=== PATIENT | male | born 1970 | race Caucasian/White ===

== ENCOUNTER 2018-05-30 11:50 | Observation (INO) ==
[2018-05-30 12:32] LABS: Hematocrit 50.6 % (37.5-50.1); Hemoglobin 16.6 g/dL (12.9-16.9); Immature Granulocytes % 0.8 % (0-4); Lymphocytes % 24.5 %; Mean Corpuscular HGB Conc 32.8 g/dL (31.6-35.5); Mean Corpuscular Hemoglobin 29.4 pg (28.0-33.3); Mean Corpuscular Volume 89.7 fL (83.0-100.0); Mean Platelet Volume 9.2 fL (9.4-12.4); Monocytes % 3.3 %; Platelet Count 142 K/mcL (140-400); Red Blood Count 5.64 M/mcL (4.19-5.50); Segmented Neutrophils % 70.5 %
[2018-05-30 12:33] LABS: Basophils % 0.4 %; Eosinophils % 0.5 %; Lymphocytes # 2.1 K/mcL (0.6-4.6); Monocytes # 0.3 K/mcL (0.0-1.3); Neutrophils # 5.9 K/mcL (1.6-8.9)
[2018-05-30] MEDS ORDERED: Ipratropium/Albuterol Neb 3 ML IH ONE (12:51)
[2018-05-30] MEDS ORDERED: predniSONE 20 MG TABLET PO ONE (12:51)
[2018-05-30 12:54] LABS: BUN/Creatinine Ratio 19 (6-26); Blood Urea Nitrogen 23 mg/dL (6-20); Calcium 9.3 mg/dL (8.6-10.3); Carbon Dioxide 25 mEq/L (23-29); Chloride 103 mEq/L (98-107); Glucose 185 mg/dL (70-105); Osmolality,Calculated 290 (280-300); Potassium 3.8 mEq/L (3.5-5.1); Sodium 136 mEq/L (136-145); eGFR For Non-African Americans > 60 (> 60)
[2018-05-30 13:04] LABS: Troponin I 0.06 ng/mL (< 0.04)
--- NOTE | 2018-05-30 14:41 | Emergency Department Note ---
Disposition Clinical Impression: Elevated troponin Asthma exacerbation Qualifiers: Asthma severity: mild Asthma persistence: persistent Qualified Code(s): J45.31 - Mild persistent asthma with (acute) exacerbation Disposition: Admitted As Inpatient Condition: Fair Time of Disposition: 14:41 General Adult HPI - General Chief complaint: ED Shortness of Breath/Dyspnea Stated complaint: Possible pneumonia Time Seen by Provider: 05/30/18 12:01 Source: patient Mode of arrival: ambulatory Limitations: no limitations Nursing Notes Reviewed: Yes Vital Signs Reviewed: Yes - History of Present Illness HPI Narrative: 48-year-old male with significant past medical history of asthma presenting to the emergency department chief complaint of left-sided "rumbling" in his lungs. According to the patient approximately 1 week ago he was seen by urgent care and diagnosed with pneumonia. At that time he was having shortness of breath, wheezing and fever. He was given a Z-Melecio and steroids. He completed these approximately 4-5 days ago but he continues to have shortness of breath. He states he can hear his left long rumbling. He denies any chest pain, abdominal pain, nausea or vomiting. Has not had any fever since he completed antibiotics. Patient denies any cardiac history. His only other medication is a rescue inhaler as needed. Pain Scale: 0 - Related Data Allergies Allergy/AdvReac Type Severity Reaction Status Date / Time Penicillins Allergy "don't Verified 05/30/18 11:57 know, I was a baby." All systems ED: reviewed and negative except as stated. Constitutional: Denies: fever Eyes: Reports: as per HPI ENT ED: Reports: as per HPI Cardiovascular: Denies: chest pain Respiratory: Reports: dyspnea, wheezes Gastrointestinal: Denies: abdominal pain Genitourinary: Reports: as per HPI Musculoskeletal: Reports: as per HPI Integumentary: Reports: as per HPI Neurological: Reports: as per HPI Psychiatric: Reports: as per HPI Endocrine: Reports: as per HPI Hematological/Lymphatic: Reports: as per HPI Allergic/Immunologic: Reports: as per HPI Past Medical History - Past Medical History Attestation: Yes The following information was validated with the patient. Medical history: Reports: asthma Psychiatric history: Reports: anxiety - Social History Smoking Status: Current every day smoker Smokeless Tobacco Status: No Alcohol use: Reports: none Drug use: Reports: none Physical Exam - General Limitations: no limitations General appearance: alert, in no apparent distress - Head Head exam: atraumatic, normocephalic, normal inspection - Eye Eye exam: Absent: scleral icterus - ENT ENT exam: mucous membranes moist - Neck Neck exam: Present: full ROM - Chest Chest inspection: Present: symmetric chest wall rise - Respiratory Respiratory exam: Present: wheezes (Expiratory wheezing heard throughout). Absent: respiratory distress, stridor, accessory muscle use - Cardiovascular Cardiovascular exam: Present: normal rhythm, tachycardia, normal heart sounds - Abdominal Exam Abdominal exam: Present: soft, Non-Tender. Absent: distention, guarding, rebound - Extremities Exam Extremities exam: Present: full ROM - Neurological Exam Neurological exam: Present: alert, oriented X3 - Psychiatric Psychiatric exam: Present: normal affect, normal mood - Skin Skin exam: Present: warm Course Course Narrative: 48-year-old male presenting for shortness of breath and "rumbling" in his left lung. In the room patient is alert and oriented 3. Minimally tachycardic in the low 100s but otherwise hemodynamically stable. Patient does have expiratory wheezing on exam but otherwise exam is within normal limits. Due to patient's shortness of breath obtain basic laboratory analysis along with an EKG and chest x-ray. Disposition pending. Patient agrees with this plan. We will provide the patient with DuoNebs and steroids as well. - Reevaluation(s) Reevaluation #1: Patient's laboratory analysis concerning for an elevated troponin at 0.06. Patient has no previous EKG for troponin to compare to. His EKG also has some T-wave inversions noted. Due to patient's shortness of breath, abnormal EKG and elevated troponin will plan to admit him for further evaluation. Patient continues to deny any chest pain at this time. 3 and hemodynamically stable. Patient agrees to admission. I spoke with the hospitalist on-call who agrees to accept the patient at this time. Vital Signs Temperature 98.6 F 05/30/18 11:54 Pulse Rate 103 05/30/18 11:54 Respiratory Rate 18 05/30/18 11:54 Blood Pressure 171/107 05/30/18 11:54 O2 Sat by Pulse Oximetry 98 05/30/18 11:54 Temperature 98.1 F 05/30/18 14:46 Pulse Rate 95 05/30/18 14:46 Respiratory Rate 18 05/30/18 14:46 Blood Pressure 134/87 05/30/18 14:46 O2 Sat by Pulse Oximetry 96 05/30/18 14:46 Oxygen Delivery Oxygen Delivery Room Air Medical Decision Making - Lab Data Result diagrams: 05/30/18 12:19 05/30/18 12:19 Lab Results 05/30/18 05/30/18 05/30/18 Range/Units 12:19 12:19 12:19 WBC 8.4 (4.3-11.1) K/mcL RBC 5.64 H (4.19-5.50) M/mcL Hgb 16.6 (12.9-16.9) g/dL Hct 50.6 H (37.5-50.1) % MCV 89.7 (83.0-100.0) fL MCH 29.4 (28.0-33.3) pg MCHC 32.8 (31.6-35.5) g/dL RDW 16.0 H (11.5-14.5) % Plt Count 142 (140-400) K/mcL MPV 9.2 L (9.4-12.4) fL Immature Gran % 0.8 (0-4) % Seg Neutrophils % 70.5 % Lymphocytes % 24.5 % Monocytes % 3.3 % Eosinophils % 0.5 % Basophils % 0.4 % Neutrophils # 5.9 (1.6-8.9) K/mcL Lymphocytes # 2.1 (0.6-4.6) K/mcL Monocytes # 0.3 (0.0-1.3) K/mcL Eosinophils # 0.0 (0.0-0.6) K/mcL Basophils # 0.0 (0.0-0.2) K/mcL Sodium 136 (136-145) mEq/L Potassium 3.8 (3.5-5.1) mEq/L Chloride 103 (98-107) mEq/L Carbon Dioxide 25 (23-29) mEq/L BUN 23 H (6-20) mg/dL Creatinine 1.18 (0.70-1.30) mg/dL Est GFR ( Amer) > 60 (> 60) Est GFR (Non-Af Amer) > 60 (> 60) BUN/Creatinine Ratio 19 (6-26) Glucose 185 H (70-105) mg/dL Calculated Osmolality 290 (280-300) Calcium 9.3 (8.6-10.3) mg/dL Troponin I 0.06 H* (< 0.04) ng/mL B-Natriuretic Peptide 20 (Less than 100) pg/mL - EKG Data EKG #1 EKG attestation: Yes I reviewed and interpreted this EKG. EKG results narrative: Sinus tachycardia. 101 beats for minute. DC interval 144, QRS 92, QTC 418. No sign of acute ST segment elevation. T-wave inversion noted on V1, V2, V3, V4, V5. No old EKG to compare to. Attestation Statement - Attestation Attestation: I, Neptali Cohen, examined this patient and my medical decision-making was reviewed with the FLYING SHEAR OPERATOR/PA/Advanced Practice Nurse/Resident Physician. I agree with the documented findings, disposition and treatment plan as described except to the extent set forth below. 48-year-old male presents emergency Department with concerns of difficulty breathing. Patient states he has been on steroids in the past few days, took a course of azithromycin without significant improvement of his symptoms. Patient reports he did not take his full course of steroids secondary to feeling in creased anxiety and had difficulty sleeping. On physical exam the patient has wheezing the bilateral posterior lung bethea. He is given breathing treatment which helped his respiratory effort. Patient was not hypoxic. X-ray did not show obvious pneumonia. Had mild elevation of his troponin however he did not have chest pain emergency department EKG did not show evidence of acute STEMI. He will be admitted to the hospital for further care and evaluation.
[2018-05-30] MEDS ORDERED: Naloxone 0.4 MG/ML INJ IVP PRN (17:09)
--- NOTE | 2018-05-30 17:21 | Internal Med History&Physical ---
Date of Encounter: 05/30/18 Time of Encounter: 17:14 Internal Medicine - H&P: HPI Chief complaint: SOB, cough Admitted From: Home Plans for Post Hospital Care: Home History of present illness: Mr. Liz is a 48 year old obese male with PMHx of Asthma, Anxiety disorder, > 30 pack yr tobacco history presents to the ED c/o SOB and cough. Pt reports symptoms began 10 days ago. Pt reports subjective fevers, chills, weakness, body aches and a nonproductive cough. Pt also c/o some chest tightness and used his rescue inhaler however it did not help. Pt reports he went into an [facility] was told he had PNA (no CXR done) and was started on Medrol pack and Zpack. Pt reports he completed the Zpack but no the medrol pack as it made him gittery, made his heart race and gave him insomnia. Pt reports he came in today because he still felt weak, and heard some rattling in his chest. Pt denies chest pain, n/v or dizziness. On arrival in ED Vitals BP 171/107 --> 134/87, hr - 103 --> 95. RR - 18, Temp 98.6, SPO2 98% on RA. CXR neg for acute infiltrate. Pt given 1 duoneb and Prednisone 60 Past Med Surg Social Fam HX - Past Medical History Medical history: asthma Psychiatric history: anxiety - Social History Smoking Status: Current every day smoker Smokeless Tobacco Status: No Alcohol use: none Drug use: none - Family History Father Hx Family Endocrine Disorder: Yes (DM) Internal Medicine - H&P: Meds Allergy/AdvReac Type Severity Reaction Status Date / Time Penicillins Allergy "don't Verified 05/30/18 11:57 know, I was a baby." All Systems PM: A 10-system review of systems was performed and is negative for pertinent findings except as documented above in the HPI. Review of systems: A 14 point ROS was obtained from patient, pertinent positives and engatives as states in HPI, all other ROS were wnl except a chronic (>1yr hx) left foot pain and left eye hazzy vision) - Constitutional Vitals: Temp Pulse Resp BP Pulse Ox 98.1 F 95 18 134/87 96 05/30/18 14:46 05/30/18 14:46 05/30/18 14:46 05/30/18 14:46 05/30/18 14:46 General appearance: Present: A&O X 3, pleasant, no acute distress, obese Exam: as below - Head Head exam: Present: atraumatic, normocephalic - Eye Eye exam: Present: EOMI, PERRL Pupils: Present: PERRL - ENT ENT exam: Present: mucous membranes moist - Neck Neck exam general surgery: Present: full ROM, normal inspection - Respiratory Respiratory exam: Present: CTAB - Cardiovascular Cardiovascular exam: Present: RRR, +S1, +S2 - GI/Abdominal GI/Abdominal exam: Present: normal bowel sounds, soft - Extremities Exam Extremities exam: Present: full ROM, warm, radial pulses palpable and symmetrical Additional comments: No edema - Neurological Exam Neurological exam: Present: CN II-XII intact, oriented X3, no focal deficits - Skin Skin exam: Present: dry, intact Internal Med - H&P Results - Labs CBC & Chem 7: 05/30/18 12:19 05/30/18 12:19 Labs: Short CBC 05/30/18 Range/Units 12:19 WBC 8.4 (4.3-11.1) K/mcL Hgb 16.6 (12.9-16.9) g/dL Hct 50.6 H (37.5-50.1) % Plt Count 142 (140-400) K/mcL Neutrophils # 5.9 (1.6-8.9) K/mcL BMP 05/30/18 12:19 Sodium 136 Potassium 3.8 Chloride 103 Carbon Dioxide 25 BUN 23 H Creatinine 1.18 Glucose 185 H Calcium 9.3 Cardiac Enzymes 05/30/18 Range/Units 12:19 Troponin I 0.06 H* (< 0.04) ng/mL - EKG Data Rate: tachycardia - EKG Data EKG comments: 05/30/18 17:30 Sinus tachy at 101 bpm, T wave Inv in V2 - V6 (New in V3 - v6 compared to old one) - Impressions ITS Impressions Chest X-Ray 05/30/18 12:01 IMPRESSION: No acute cardiopulmonary process. D/ / John Petersen MD / John Petersen MD Interpreting Provider: John Petersen MD - Assessment and plan (1) Asthma exacerbation Current Visit: Yes Status: Acute Assessment and plan: c/w Prednisone taper - duonebs q6 ATC and prn - SPO2 stable on RA - f/u RVP - pt already completed Zpack Qualifiers: Asthma severity: mild Asthma persistence: persistent Qualified Code(s): J45.31 - Mild persistent asthma with (acute) exacerbation (2) Elevated troponin Current Visit: Yes Status: Acute Assessment and plan: Pt did not have chest pain, but did have mild tightness and new EKG changes - Troponemia likely demand however pt has a > 30 yr tobacco hx, he is obese and he has significant family hx of MIs (GF in 40s, F in 60s) - cont pt on tele - trend trops - f/u 2D Echo - f/u lipid panel - ASA - would stress pending troponin trend (3) Heavy tobacco smoker Current Visit: Yes Status: Chronic Assessment and plan: Tobacco cessation counseling - pt advised to have PFTs after symptoms resolve to eval for COPD (4) DVT prophylaxis Current Visit: Yes Status: Acute Assessment and plan: SCDs - Time Spent With Patient Total time spent is greater than 50% in coordination of care (as documented) at patient's floor/unit and/or counseling patient: - VTE Reasons for not Prescribing Prophylaxis: Treatment not Indicated - Low risk for VTE
[2018-05-30] MEDS ORDERED: Ipratropium/Albuterol Neb 3 ML IH PRN (17:43)
[2018-05-30 19:19] VITALS: BP 130/83
[2018-05-30] MEDS ORDERED: Ipratropium/Albuterol Neb 3 ML IH SCH (22:00)
[2018-05-31] MEDS ORDERED: predniSONE 20 MG TABLET PO SCH (09:00)
--- NOTE | 2018-06-02 05:22 | Electrocardiograph Report ---
[place] [facility] Test Date: 2018-05-30 Pat Name: Syed Liz Department: EXAM1 Room: 3B37 Gender: M Manager In Home: : 1970 Requested By: Yumiko Castorena Order Number: [id number] Reading MD: Nadja Abdalla Measurements Intervals [place] Rate: 101 P: 9 SD: 144 QRS: 4 QRSD: 92 T: 88 QT: 322 QTc: 418 Interpretive Statements Sinus tachycardia RSR' in V1 or V2, probably normal variant Nonspecific T abnrm, anterolateral leads Electronically Signed On 06-02-2018 5:21:02 EST by Nadja Abdalla
== END 2018-05-30 19:58 | disposition left against medical advice (07) ==
LOC: EMEROOARM 11:50 → 3BNU 11:50
PROVIDERS: ADMIT Student in an Organized Health Care Education/Training Program; ATTEND Student in an Organized Health Care Education/Training Program